=== PATIENT | male | born 1975 | race Caucasian/White ===

== ENCOUNTER 2020-08-22 05:01 | Emergency (ER) | payer OTHER, SELFPAY ==
[2020-08-22 05:04] VITALS: BP 156/96; PULSE 80; RESP 16; TEMP 36.5; O2SAT 98
[2020-08-22] MEDS: TETRACAINE HCL 0.5% OPHTH SOLN 4 ML BTL 1 DROP (06:04)
--- NOTE | 2020-08-22 06:04 | ED.EYEPROB ---
HPI - Eye Problem General Chief complaint: Eye Problems Stated complaint: metal shaving in L eye Time Seen by Provider: 08/22/20 05:08 History of Present Illness HPI Narrative: 44 yo male presents t the ED for eye pain. He was using a abrasive grinder ealier in the evening to cut metal. He felt some particles fly into his left eye. He had mild pain at the time. The pain became more intense and he developed redness in the left eye as well. No vision change. Related Data Allergies Allergy/AdvReac Type Severity Reaction Status Date / Time No Known Allergies Allergy Verified 08/22/20 05:15 Review of Systems Review of Systems: All systems reviewed & are unremarkable except as noted in HPI and below Constitutional: Constitutional: Denies chills, Denies fever(s) and Denies weakness Eyes: Eyes: Denies change in vision and Reports photophobia ENT: Denies sore throat Cardiovascular: Cardiovascular: Denies chest pain Respiratory: Respiratory: Denies dyspnea Neurologic: Denies headache(s) [facility] Past Medical History Medical History (Updated 08/26/20 @ 02:51 by Richard Lopez MD) Healthy adult Social History Social History (Updated 08/26/20 @ 02:51 by Richard Lopez MD) Smoking status: Never smoker Exam Const: General: healthy appearing, no acute distress and alert Orientation/consciousness: patient oriented x3 HENMT: Head: normal to inspection Eyes: Conjunctivae: conjunctival abnormality left conjunctival injection diffuse Pupils: Equal, round and reactive pupils present Other: punctate rust spot to left cornea. Minimal fluorecin uptake adjacent. Resp: Effort & Inspection: normal respiratory effort Auscultation: clear to auscultation bilaterally Cardio: Rate: regular rate Rhythm: regular rhythm Skin: General skin exam: normal color Neuro: General: patient oriented x3, moves all extremities and CN's II-XI intact bilaterally Speech: normal speech Gait exam (Neuro): Normal gait present Course Vital Signs Vital signs: Vital Signs Temperature 36.5 C 08/22/20 05:04 Pulse Rate 80 08/22/20 05:04 Respiratory Rate 16 08/22/20 05:04 Blood Pressure 156/96 H 08/22/20 05:04 Pulse Oximetry 98 08/22/20 05:04 Temperature 36.5 C 08/22/20 05:04 Pulse Rate 80 08/22/20 05:04 Respiratory Rate 16 08/22/20 05:04 Blood Pressure 156/96 H 08/22/20 05:04 Pulse Oximetry 98 08/22/20 05:04 MDM - Eye Problem MDM Narrative Medical decision making narrative: I planned to remove the rust ring, but our drill was not functioning. I discussed trying with a 25 gauge needle. He did not feel that he would be able to tolerate the procedure. Given the very minimal size of the ring I told him that it will likely resolve on its own. I did give him contact information for [facility] ophthalmology. Discharge Plan Discharge Clinical Impression: Corneal rust ring of left eye Patient Disposition: Home, Self-Care Condition: Stable Instructions: Antibiotic Form, Corneal Abrasion (ED) Additional Instructions: If you continue to have pain in 24 hours follow-up at [facility] ophthalmology clinic. Prescriptions: New erythromycin 5 mg/gram (0.5 %) ointment 0.5 inch ophthalmic (eye) QID Qty: 1 RF: 0 hydrocodone-acetaminophen [Romayor] 5-325 mg tablet 1 tablet PO Q6H PRN (Reason: pain) Qty: 10 RF: 0 Follow-up/Referrals: PHYSICIAN NOT ON STAFF,NONSTAFF [Primary Care Provider] -
[2020-08-22] MEDS: ERYTHROMYCIN OPHTH OINTMENT 1 GM TUBE 1 APPLIC LEFT EYE (07:48)
== END 2020-08-22 06:15 | disposition home or self-care (01) ==
PROVIDERS: Emergency Provider Emergency Medicine
DX: T15.02XA Foreign body in cornea, left eye, initial encounter (principal)
CPT/HCPCS: 99283; A9270